=== PATIENT | female | born 1980 ===

== ENCOUNTER 2016-10-27 00:33 | Inpatient (IN) | payer OTHER ==
[2016-10-27 12:08] LABS: Hematocrit 40 % (35-47); Hemoglobin 13.2 g/dl (12.0-16.0); Mean Corpuscular HGB Conc 33 g/dl (31-36); Mean Corpuscular Hemoglobin 30 pg (27-31); Mean Corpuscular Volume 91 fL (80-97); Mean Platelet Volume 10 um3 (7.4-10.4); Red Blood Count 4.39 10^6/ul (4.0-5.4); Red Cell Distribution Width 14 % (10.5-15); White Blood Count 10.3 10^3/ul (3.5-10.8)
[2016-10-27] MEDS ORDERED: Oxytocin in LR* 20 UNITS/1,000 ML BAG IVPB ONE (12:39)
[2016-10-27] MEDS ORDERED: Oxytocin in LR* 20 UNITS/1,000 ML BAG IVPB SCH ×2 (13:00→23:00)
[2016-10-27] MEDS ORDERED: fentaNYL* 50 MCG/ML 2 ML VIAL (100 MCG VIAL) ONE (18:38)
[2016-10-27] MEDS ORDERED: OBEPIDURAL* 250 ML ONE (18:38)
[2016-10-27] MEDS ORDERED: EPHEDrine (Pressors)* 50 MG/ML VIAL IV PUSH PRN ×2 (19:30)
[2016-10-27] MEDS ORDERED: Phenylephrine IV* 40 MCG/ML 10 ML SYRINGE IV PUSH PRN ×2 (19:30)
[2016-10-27] MEDS ORDERED: fentaNYL* 50 MCG/ML 2 ML VIAL (100 MCG VIAL) IV ONE (19:32)
[2016-10-27] MEDS ORDERED: OBEPIDURAL* 250 ML EPIDURAL SCH (20:00)
[2016-10-27] MEDS ORDERED: Acetaminophen TAB* 325 MG PO PRN (22:58)
[2016-10-27] MEDS ORDERED: Glycerin ADULT SUPP PR PRN (22:58)
[2016-10-27] MEDS ORDERED: oxyCODONE/Acetamin 5/325 MG* TAB PO PRN (22:58)
[2016-10-28] MEDS: Dibucaine 1% 28.35 GM TUBE PR PRN ×2 (00:44→14:03)
[2016-10-28] MEDS: Ibuprofen TAB* 600 MG PO PRN ×4 (00:44→20:46)
[2016-10-28] MEDS: Witch Hazel PAD* JAR TOPICAL PRN ×2 (00:44→14:03)
[2016-10-28] MEDS ORDERED: Lidocaine 1% MPF* 2 ML VIAL ONE (01:50)
[2016-10-28 07:34] LABS: Hematocrit 33 % (35-47); Hemoglobin 11.3 g/dl (12.0-16.0); Mean Corpuscular HGB Conc 34 g/dl (31-36); Mean Corpuscular Hemoglobin 31 pg (27-31); Mean Corpuscular Volume 90 fL (80-97); Mean Platelet Volume 10 um3 (7.4-10.4); Red Blood Count 3.66 10^6/ul (4.0-5.4); Red Cell Distribution Width 13 % (10.5-15); White Blood Count 13.6 10^3/ul (3.5-10.8)
[2016-10-28 07:35] LABS: Comments Flag Yes
[2016-10-28] MEDS: Docusate CAP* 100 MG PO SCH ×3 (08:21→20:47)
[2016-10-28] MEDS: Simethicone CHEW TAB* 80 MG PO SCH ×2 (11:26→13:59)
[2016-10-28] MEDS: Ferrous Gluconate TAB* 324 MG TAB PO SCH (11:26)
--- NOTE | 2016-10-28 19:10 | PTEDU ---
Patient Name: OANH YOUNG OANH YOUNG selected video: BBOB: Nurturing Your Gorgeous \T\Growing Baby by to view on 10/28/2016 at 7:09:09 PM from [id number]
[2016-10-29] MEDS: Ibuprofen TAB* 600 MG PO PRN ×2 (03:09→09:11)
[2016-10-29 08:19] VITALS: BP 123/66
[2016-10-29] MEDS: Docusate CAP* 100 MG PO SCH (09:11)
[2016-10-29] MEDS: Dibucaine 1% 28.35 GM TUBE PR PRN (09:12)
[2016-10-29] MEDS: Witch Hazel PAD* JAR TOPICAL PRN (09:12)
[2016-10-29] MEDS: Ferrous Gluconate TAB* 324 MG TAB PO SCH (15:05)
== END 2016-10-29 16:02 | disposition home or self-care (01) | DRG 542 ==
LOC: MCHOBOUT 00:33 → MCHOB 01:15
PROVIDERS: ADMIT Nurse Practitioner; ATTEND Nurse Practitioner
PROC: 10E0XZZ Delivery of Products of Conception, External Approach (ICD-10-PCS; principal; 2016-10-27)
PROC: 0DQR0ZZ Repair Anal Sphincter, Open Approach (ICD-10-PCS; 2016-10-27)
DX: O32.6XX0 Maternal care for compound presentation, not applicable or unspecified (principal); O71.3 Obstetric laceration of cervix; O69.81X0 Labor and delivery complicated by cord around neck, without compression, not applicable or unspecified; Z3A.37 37 weeks gestation of pregnancy; Z37.0 Single live birth
CPT/HCPCS: 36415; 85025; 85027; 86850; 86900; 86901; A9270-GY; J3010

== ENCOUNTER 2019-05-03 10:45 | Emergency (ER) | payer OTHER ==
--- OUTSIDE RECORDS SUMMARY | 2019-05-03 10:49 | XMS REPORT | Continuity of Care Document ---
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 [phone] Problems Description No Active Problems Social History Type Date Description Comments Sex Unknown Tobacco Use Start: Unknown Never Smoked Cigarettes Smoking Status Reviewed: 05/02/19 Never Smoked Cigarettes ETOH Use Alcohol Use Prior To 1-2 Drinks Per Week Tobacco Use Start: Unknown Patient has never smoked Recreational Drug Use Denies Drug Use Exercise Type/Frequency Exercises regularly Seat Belt/Car Seat Always uses seat belt Allergies, Adverse Reactions, Alerts Description No Known Drug Allergies Medications Active Medications SIG Qnty Indications Ordering Provider Date Vitamin take 1 daily by Unknown Tablets mouth Medications Administered in Office Medication SIG Qnty Indications Ordering Provider Date PT SCRN Tbco Id as Non User Ibrahima Soliman MD 05/02/2019 Injection PT SCRN Tbco Id as Non User Carolyne Bailey CNM 07/10/2018 Injection Immunizations CPT Code Status Date Vaccine Lot # [id number] Given 09/02/2016 Tetnus, Diptheria Toxoids And Acellular Pertussis, [id number] PT > 7Yrs Old Vital Signs Date Vital Result Comment 05/02/2019 10:56am BP Systolic 114 mmHg BP Diastolic 78 mmHg Height 65.50 inches 5'5.50" Weight 172.00 lb BMI (Body Mass Index) 28.2 kg/m2 Last Menstrual Period 5399663 1 Parity 1 07/10/2018 3:02pm BP Systolic 118 mmHg BP Diastolic 68 mmHg Height 65.50 inches 5'5.50" Weight 170.00 lb BMI (Body Mass Index) 27.9 kg/m2 Last Menstrual Period 1061052 1 Parity 1 Results Test Acquired Date Facility Test Result H/L Range Note Laboratory test 05/02/2019 [facility] HCG <pending> [place] [address] [phone] Procedures Date Code Description Status 05/02/2019 67188 Echography Transvaginal Completed Medical Devices Description No Information Available Encounters Type Date Location Provider Dx Diagnosis Office Visit 05/02/2019 [facility] Ibrahima Soliman MD O36.80x0 w 10:30a inconclusive viability, unsp Assessments Date Code Description Provider 05/02/2019 O36.80x0 with inconclusive viability, Ibrahima Soliman MD not applicable or unspecified 05/02/2019 O20.8 Other hemorrhage in early Ultrasounds Plan of Treatment Future Appointment(s):05/18/2019 2:00 pm - Luis Centeno CNM at [facility] [place] 1:45 pm - Ultrasounds at [facility]12/10/2016 - KATERINE RobbinsMR30.0 DysuriaComments:Urine micro suggestive of UTI, pt prefers to begin antibiotic treatment and confirm with culture. Follow up based on results. Call for worsening symptoms or PRN. Return 12/14 for [facility]. Functional Status Description No Information Available Mental Status Description No Information Available Referrals Description No Information Available
[2019-05-03 10:53] VITALS: BP 122/75
--- NOTE | 2019-05-03 11:16 | UC ---
- HPI Summary HPI Summary: CHIEF COMPLAINT and HPI: This is a 38 -year-old 2 para 1001 Her only child was born 2-1/2 years ago and is healthy. Patient states that she has been having vaginal bleeding for 48 hours. Patient saw her QUALITY ASSURANCE TESTER yesterday, at which time an ultrasound was completed and blood work was done. There was concern about a threatened . Her dates are 8 weeks or earlier. Today, she states that she tried to get into that office but couldn't connect with them and since last night has been passing tissue and having cramping. In the [facility], she appears comfortable and states that she is not bleeding or passing tissue at this time. The patient's vital signs are stable. She was sent for a transvaginal ultrasound. VITAL SIGNS & SaO2 REVIEWED. Within normal limits unless noted here. NURSES NOTE REVIEWED. - History of Current Complaint Chief Complaint: UCGeneralIllness Stated Complaint: PERSONAL Time Seen by Provider: 05/03/19 11:12 Pain Intensity: 0 - Assessment Hx Now: Yes SAB: 0 IEA: 0 Hx Hysterectomy: No - Additional Pertinent History Maternal Blood Type and Rh: B Positive - Allergies/Home Medications Allergies/Adverse Reactions: Allergies Allergy/AdvReac Type Severity Reaction Status Date / Time No Known Allergies Allergy Verified 05/03/19 10:54 Home Medications: Home Medications 95/Iron Fum/Folic/Dha [ + Dha Combo Pack] 1 tab PO DAILY [History Confirmed 05/03/19] PMH/Surg Hx/FS Hx/Imm Hx - Additional Past Medical History Additional PMH: PAST MEDICAL HISTORY- CHRONIC and RECURRENT HEALTH PROBLEM LIST REVIEWED. Information relevant to present complaint: previous successful . VISIT HISTORY REVIEWED. MEDICATIONS & ALLERGIES REVIEWED. HYPERTENSION STATUS: none FAMILY HISTORY: Patient denies family history of: hypertension, cardiovascular disease, stroke, diabetes, cancer. 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 Previously Healthy: Yes - Surgical History Surgical History: Yes Surgery Procedure, Year, and Place: tonsils - Social History Alcohol Use: None Substance Use Type: None Smoking Status (MU): Never Smoked Tobacco - Immunization History Most Recent Influenza Vaccination: 2016 Most Recent Pneumonia Vaccination: Unknown Review of Systems All Other Systems Reviewed And Are Negative: Yes Eyes: Positive: Negative ENT: Positive: Negative Respiratory: Positive: Negative Cardiovascular: Positive: Negative Gastrointestinal: Positive: Negative, Other Genitourinary: Positive: Negative, Abnormal Bleeding - and passage of tissue per vagina Physical Exam - Summary Physical Exam Summary: Appearance: The patient is well-appearing, is in no pain or distress, and is well-nourished. Eyes: Conjunctiva are clear. Pupils are equal and reactive to light and accommodation. Extra ocular muscle movement is intact. ENT: The hearing is grossly normal, the pharynx is normal, and the TMs are normal. There is no muffled or hoarse voice. No stridor. Neck: The neck is supple and there is no lymphadenopathy. Respiratory: The chest is non-tender to palpation and without crepitus. The lungs are clear, there are normal breath sounds, and there is no respiratory distress. No wheezes, rales or rhonchi. Cardiovascular: Heart sounds reveal a regular rate and rhythm. There are no clicks, rubs or murmurs. There are no carotid bruits or thrills. Circulation is grossly intact. Abdomen: The abdomen is soft and nontender. There is no organomegaly. Bowel sounds are present and within normal limits. No point tenderness at McBurneys point. No CVA tenderness. Musculoskeletal: Strength is intact. The patient moves all extremities. Neurological: The patient is alert. Motor and sensory are examination grossly intact. Speech is normal. Psychological: The patient displays age appropriate behavior, and is conversant. GCS=15. Skin: Negative for rashes. - Physical Exam Triage Information Reviewed: Yes Vital Signs Reviewed: Yes Diagnostics - Vital Signs Vital Signs Temp Pulse Resp BP Pulse Ox 05/03/19 10:48 97.2 F 87 16 122/75 100 - Laboratory Lab Statement: Any lab studies that have been ordered have been reviewed, and results considered in the medical decision making process. - Course Course Of Treatment: This is a 38 -year-old 2 para 1001. Her only child was born 2-1/2 years ago and is healthy. Patient states that she has been having vaginal bleeding for 48 hours. Patient saw her QUALITY ASSURANCE TESTER yesterday, at which time an ultrasound was completed and blood work was done. There was concern about a threatened . Her dates are 8 weeks or earlier. Today, she states that she tried to get into that office but couldn't connect with them and since last night has been passing tissue and having cramping. In the [facility] , she appears comfortable and states that she is not bleeding or passing tissue at this time. The patient's vital signs are stable. She was sent for a transvaginal ultrasound. FINDINGS: No gestational sac or pole is identified. The endometrial stripe is 0.9 cm thick. A fibroid in the anterior uterine body measures 1.3 x 1.6 x 1.0 cm. The right ovary measures 2.8 x 1.6 x 2.7 cm. Left ovary measures 2.4 x 2.0 x 2.8 cm. A left ovarian cyst measures up to 1.9 cm. Ovarian Doppler signal is detected bilaterally. No free fluid is detected. IMPRESSION: 1. NO GESTATIONAL SAC OR POLE IS IDENTIFIED. 2. THE ENDOMETRIAL STRIPE IS 0.9 CM THICK. 3. A LEFT OVARIAN CYST MEASURES UP TO 1.9 CM. OVARIAN DOPPLER SIGNAL DETECTED BILATERALLY. [facility] called and I spoke to Dr. Shultz. 12:30 pm. Yesterday, patient noted to have 5 week IUP by ultrasound. No ectopic noted. Patient will follow up with [facility]. Vital signs are stable and the patient is comfortable. - Differential Diagnosis/HQI/PQRI: Threatened , Retained Products of Conception - Diagnoses Provider Diagnoses: Complete miscarriage Discharge ED - Sign-Out/Discharge Documenting (check all that apply): Patient Departure All imaging exams completed and their final reports reviewed: Yes - Discharge Plan Condition: Stable Disposition: HOME Patient Education Materials: Miscarriage (ED) Referrals: Krystal Llamas MD [Primary Care Provider] - Additional Instructions: WE DISCUSSED: PLEASE SEEK CARE AT THE EMERGENCY DEPARTMENT IF SYMPTOMS WORSEN OR IF NEW SYMPTOMS DEVELOP. YOUR DIAGNOSIS IS: Miscarriage. YOUR PRESCRIPTION RECOMMENDATION IS: None. FOR PAIN AND/OR SLEEP: For pain: Ibuprofen (Motrin and other brand names) 400-600mg PLUS acetaminophen (Tylenol and other brand names) 500mg - 1000mg every [address] spoke to Dr[address] Shultz, and he recommended to call their office to be seen next week in follow-up. As we discussed, go to the emergency department if you have any increased pain, bleeding, dizziness or shortness of breath. - Billing Disposition and Condition Condition: STABLE Disposition: Home
== END 2019-05-03 13:14 | disposition home or self-care (01) ==
LOC: UCEAST 10:45
DX: O03.9 Complete or unspecified spontaneous abortion without complication (principal); N83.202 Unspecified ovarian cyst, left side
CPT/HCPCS: 36415; 76817; 84702; 99211; G0463